=== PATIENT | male | born 1955 ===

== ENCOUNTER 2017-11-30 11:18 | Day surgery (SDC) | payer OTHER ==
--- NOTE | 2017-11-25 00:37 | HP ---
PREOPERATIVE HISTORY AND PHYSICAL: DATE OF ADMISSION/SURGERY: 11/30/17 DATE OF OFFICE VISIT: 11/22/17 ATTENDING SURGEON: Ariella Romero MD * (DICTATED BY CARLITO LAW) PROCEDURE: Right shoulder arthroscopic rotator cuff repair, decompression, debridement, subpectoral biceps tenodesis. CHIEF COMPLAINT: Right shoulder pain. HISTORY OF PRESENT ILLNESS: Gonzalez is a 62-year-old male who presents to the clinic for right shoulder pain due to a rotator cuff tear and biceps tendinitis after a fall climbing his tree stand. He has failed conservative measures and therefore agreed to undergo a right shoulder arthroscopic rotator cuff repair, decompression, debridement, and subpectoral biceps tenodesis with Dr. Romero on 11/30/17. PAST MEDICAL HISTORY: 1. Hypertension, controlled with diet. 2. Osteoarthritis. 3. Borderline thyroid disorder. PAST SURGICAL HISTORY: Vasectomy and hernia surgery. Denies prior complications with anesthesia. MEDICATIONS: 1. Ibuprofen 200 mg 2 to 3 tablets every 6 hours as needed for pain. 2. Iron 1 tab daily. 3. Multivitamin 1 daily. 4. CoQ10 daily. ALLERGIES: BEE STING. FAMILY HISTORY: Positive for heart disease in his mother, cancer on his maternal and paternal side and diabetes on his maternal side and his dad with COPD. Denies family history of DVT or PE. SOCIAL HISTORY: He lives with his spouse. He works in security. He is a former smoker, quit in 1993. He drinks 2 to 3 alcoholic beverages per week. He is left- hand dominant. REVIEW OF SYSTEMS: A 14-point review of systems was reviewed with the patient. Positive for current complaint, otherwise negative. Denies fevers, chills, chest pain, shortness of breath, history of DVT or PE, history of bleeding disorder, history of MRSA. PHYSICAL EXAMINATION GENERAL: A 62-year-old well-developed, well-nourished female, in no acute distress. Alert and oriented x3. Appropriate mood and affect. Appropriate balance and coordination of the upper extremities. VITAL SIGNS: Height 72, weight 228, pulse 70, blood pressure 130/76, respiratory rate 18, temperature 97.7, BMI 30.9. HEENT: Normocephalic, atraumatic. PERRLA. Throat: Clear. NECK: Supple. PULMONARY: Lungs are clear to auscultation bilaterally. No wheezing, rhonchi, or rales. CARDIO: Regular rate and rhythm. S1, S2. No murmurs, gallops, or rubs. No edema. ABDOMEN: Positive bowel sounds, soft, nontender. NEURO: Alert and oriented x3. Cranial nerves grossly intact. MUSCULOSKELETAL: Right upper extremity, skin is intact. No warmth or erythema. Forward flexion 160, abduction 155, external rotation to 55, internal rotation to thoracolumbar spine. +4/5 strength to supraspinatus testing with pain. +5/5 to belly-press and bear-hug. Positive impingement, Speed, Bernabe-Bello , Mason. +2 radial pulse. Sensation intact to light touch distally. DIAGNOSTIC STUDIES: CTA of the right shoulder was independently reviewed by Dr. Romero today and revealed massive tear in supraspinatus tendon and fluid around the biceps. IMPRESSION: Right shoulder rotator cuff tear and biceps tendinitis. PLAN: The patient is scheduled to undergo a right shoulder arthroscopic rotator cuff repair, decompression, debridement, subpectoral biceps tenodesis with Dr. Romero on 11/30/17. He will follow up in 10 to 14 day postop for followup and suture removal. Percocet will be used for postoperative pain management and Keflex for antibiotic prophylaxis. CARLITO LAW [id number]/[facility] #: [id number] MTDD
[~2017-11-30 11:18] MED LIST: Buffered Lidocaine 0.9% SYRIN* 5 ML/SYR SYRINGE INTRADERM ONE; Famotidine IV* 10 MG/ML 2 ML (20 mg) IV ONE; Famotidine IV* 10 MG/ML 2 ML (20 mg) ONE; ceFAZolin 2 GM PREMIX (*) 2 GM/50 ML BAG IVPB ONE
[2017-11-30] MEDS ORDERED: Midazolam* 1 MG/ML 5 ML VIAL (5 MG) ONE (11:51)
[2017-11-30] MEDS ORDERED: fentaNYL* 50 MCG/ML 2 ML VIAL (100 MCG VIAL) ONE (11:51)
[2017-11-30] MEDS ORDERED: HYDROmorphone INJ* 1 MG/ML CARPUJECT SYRINGE IV PRN (12:57)
[2017-11-30] MEDS ORDERED: oxyCODONE TAB* 5 MG TAB PO PRN (12:57)
[2017-11-30] MEDS ORDERED: Acetaminophen TAB* 325 MG PO PRN (12:57)
[2017-11-30] MEDS ORDERED: Naloxone* 0.4 MG/ML 1 ML VIAL IV PRN (12:57)
[2017-11-30] MEDS ORDERED: Ondansetron INJ* 2 MG/ML VIAL IV PRN (12:57)
[2017-11-30] MEDS ORDERED: ROPIVACAINE 5 MG/ML 30 ML BTL (0.5%) ONE ×2 (14:03)
[2017-11-30] MEDS ORDERED: Lidocaine 1%* 5 ML VIAL ONE (14:03)
[2017-11-30] MEDS ORDERED: Bupivacaine 0.25% SDV* 30 ML ONE (14:29)
[2017-11-30] MEDS ORDERED: DiMENhydriNATE IV* 50 MG/ML VIAL ONE (14:41)
[2017-11-30] MEDS ORDERED: Propofol* 10 MG/ML 20 ML BTL IV PUSH ONE (14:41)
[2017-11-30] MEDS ORDERED: Ketorolac INJ* 30 MG/ML 1 ML VIAL ONE (14:41)
[2017-11-30] MEDS ORDERED: Dexamethasone IV* 4 MG/ML 1 ML (4 MG) ONE (14:41)
[2017-11-30] MEDS ORDERED: oxyCODONE/Acetamin 5/325 MG* TAB ONE (16:42)
[2017-11-30 17:25] VITALS: BP 133/97
--- NOTE | 2017-12-01 12:23 | OP ---
CC: PCP ? DATE OF OPERATION: 11/30/17 - [facility] DATE OF : 59 SURGEON: Ariella Romero MD CHEMICAL DEPENDENCY NURSE: CARLITO De León. An cement tester assistant was needed for the entirety of the case to help with positioning, retraction and was utilized throughout all portions of the case. ANESTHESIOLOGIST: Dr. Suarez. ANESTHESIA: General and interscalene block. PRE-OP DIAGNOSIS: Right shoulder full thickness tear of the rotator cuff with bicipital tendonitis and SLAP tear. POST-OP DIAGNOSIS: Right shoulder full thickness tear of the rotator cuff with bicipital tendonitis and SLAP tear. OPERATIVE PROCEDURE: 1. Right shoulder arthroscopy with extensive glenohumeral debridement including debridement of the anterior, posterior and superior labrum. 2. Subacromial decompression with acromioplasty. 3. Rotator cuff repair of full thickness anterior supraspinatus tear. 4. Subpectoral biceps tenodesis. IMPLANTS USED: One QFIX, one Multifix and one Healicoil. COMPLICATIONS: None. ESTIMATED BLOOD LOSS: Minimal. INDICATIONS: Gonzalez Shay is a 62-year-old male who was climbing up his tree stand and fell in April. He has had significant pain and inability to get back to normal function. 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 After extensive discussion of the risks and benefits of surgery and a CT arthrogram confirming a full thickness rotator cuff tear, we discussed rotator cuff repair. Risks and benefits were discussed at length and included but are not limited to bleeding, infection; damage to nerves, vessels, surrounding structures; wound nonhealing, persistent pain, need for further surgery, scarring, stiffness, incomplete relief of symptoms, risk of anesthesia. He has elected to proceed. DESCRIPTION OF PROCEDURE: The patient was greeted in the preoperative area by the attending surgeon. The correct extremity was marked and consent was confirmed. First, he underwent interscalene nerve block by the anesthesiologist in the preoperative area. He was then brought back to the operating suite where he was placed in supine position on the operating table. He underwent general anesthesia under endotracheal intubation after which he was placed in the left lateral decubitus position with an axillary roll. All bony prominences were padded. He was secured with a pegboard. The right arm was draped unsterile with 10 pounds of traction. The right shoulder was then prepped and draped in the usual sterile fashion beginning with chlorhexidine soap, scrub, and alcohol wipe and a final prep with ChloraPrep. After appropriate surgical pause indicating side, site, procedure, and administration of antibiotics, the standard postero-lateral portal was made sharply with #11 blade. The scope was introduced into the joint, joint was examined. There were grade 1 to 2 changes in the glenohumeral joint, grade 0 to 1 changes in the humeral head. The inferior recess was intact with abundant synovitis all throughout the shoulder. There was evidence of type 2 superior labral tear with subluxation of the biceps. There is evidence of full thickness rotator cuff tear particularly anteriorly. Subscapularis was intact. The interval was disrupted. The anterior portal was made in an outside-in fashion. Shaver was used to debride the anterior, posterior and superior labrum as well as some of the chondral surface of the glenoid. The biceps was then tenotomized. Attention was then directed to the subacromial space. The scope was positioned in the subacromial space. Lateral portal was made in an outside-in fashion. Shaver was used to debride the bursa that was present. The humeral head was exposed. The undersurface of the acromion had a large anterior lateral spur. This was skeletonized first using a 4-0 oval graciela. Once fluid and debris was removed from this portion of the case, the attention was directed to the rotator cuff. This was an unusual shape tear. There was an obvious area where the tendon flipped over and had already healed to itself. The tendon required re- mobilization, mobilized only the very front, anterior superior portion of the supraspinatus was torn, it would have been the beginnings of an L-shaped tear. The subscapularis again was intact. The greater tuberosity was prepared using electrocautery rasp as well as a 4-0 oval graciela to allow for bony bleeding bed. The cuff was carefully mobilized and there was a moderate amount of stretch on this, but it was able to be brought back to the footprint. One 4.75 Healicoil was placed with excellent purchase. The sutures were then passed through the tendon in a horizontal mattress configuration. Again, this brought the cuff back to the footprint, although there was some tension on this. The sutures were tied and then passed through a Multifix for double row fixation. Final images were obtained. Shoulder was taken through range of motion and found to be stable. The wounds were copiously irrigated and attention was directed to the biceps. The bed was airplaned to the right side. The anterior aspect of the shoulder was prepped again using ChloraPrep, the #15 blade was used to make an incision in line with the biceps. Soft tissues were carefully dissected to expose the bicipital groove which was brought through the wound and found to be very thick and synovitic. The groove was then prepared in the usual fashion with electrocautery, red ball rasp and osteotome. The QFIX was drilled unicortically and deployed with excellent purchase. The suture was passed through tendon, one tendon reapproximated in the musculo-tendinous junction in a Angelo-Gautam type configuration. Excess stump was excised. The biceps was shuttled back into the wounds and tied down. The wound was copiously irrigated with sterile saline. The portals were closed with 3-0 nylon. The anterior wound was closed with 2-0 Vicryl and 3-0 Monocryl. Sterile dressings were applied. 20 cc of 0.25% Marcaine was injected anteriorly. A Cryo/Cuff, Ultra- sling were applied. He was awoken from anesthesia and returned to PACU in stable condition. POSTOPERATIVE PLAN: He will be nonweightbearing. He will be allowed elbow, hand and wrist range of motion starting tomorrow. He will be discharged on pain medications and antibiotics. I will see the patient back in 10 to 14 days. DVT prophylaxis was considered, but deferred due to no previous personal or family history. [id number]/[facility] #: [id number] [facility]va
== END 2017-11-30 17:48 | disposition home or self-care (01) ==
LOC: OR 11:18
PROVIDERS: ATTEND Orthopaedic Surgery
DX: S46.011A Strain of muscle(s) and tendon(s) of the rotator cuff of right shoulder, initial encounter (principal); M75.21 Bicipital tendinitis, right shoulder; S43.491A Other sprain of right shoulder joint, initial encounter; W17.89XA Other fall from one level to another, initial encounter; Y93.89 Activity, other specified; Y92.89 Other specified places as the place of occurrence of the external cause; G89.18 Other acute postprocedural pain; I10 Essential (primary) hypertension; Z87.891 Personal history of nicotine dependence; E03.9 Hypothyroidism, unspecified; M54.9 Dorsalgia, unspecified; M19.90 Unspecified osteoarthritis, unspecified site
CPT/HCPCS: A9270-GY; C1713; C1776; J0690; J1100; J1240; J1885; J2250; J2704; J2795; J3010